=== PATIENT | female | born 1970 | race Caucasian/White ===

== ENCOUNTER → 2020-02-19 | Outpatient (CLI) | payer OTHER | LOC: M.CT 13:43 | PROVIDERS: ATTEND Nurse Practitioner | DX: Z13.6 Encounter for screening for cardiovascular disorders (principal) ==

== ENCOUNTER → 2020-03-04 | Outpatient (CLI) | payer OTHER ==
--- NOTE | 2020-03-04 17:46 | CARDNUC ---
[place] [address] CARDIAC NUCLEAR IMAGING REPORT Name: AMAURI PANIAGUA Room: [facility]#: [id number] Admission: 03/04/20 Attend Phys: Sharonda Mobley, Discharge: Date of : 70 Date of Service: 03/04/20 1746 Report #: [id number] THIS REPORT FOR: cc: Wilber Washburn Bradley L. DO Biggs, F. Douglas MD [facility] ~ APPROVED REPORT Study performed: 03/04/2020 07:45:00 Indication: Palpitations, PVC's, Strong family HX CAD, Elevated Coronary Calcium Score. Patient Location: Out-Patient Stress Tech: Funmi Rascon Stress Nurse: Alicia Heard RN Ht: 5 ft 6 in Wt: 197 lbs BSA: 1.99 m2 BMI: 31.79 Medical History Medical History: Palpitations, PVC's, PE, Elevated Coronary Artery Calcium Score, 7 day child monitor, Multiple Sclerosis, Hypothyroidism, Pre-DM, HLD, Current smoker, Family HX CAD. Medications: No Cardiac meds. Allergies: Statins Cardiac Risk Factors: Current Smoker, Pre-DM, FHX of CAD, Hyperlipidemia, Elevated Coronary Artery Calcium score, PVC's. Previous Cardiac Procedures: None Pretest Chest Pain Characteristics: No chest pain Exercise History: Physically active Physical Disabilities: Multiple Sclerosis. Meds Held (24 hrs): None Resting Data Rest SPECT myocardial perfusion imaging was performed in supine position 30 minutes following the intravenous injection of 11.3 mCi of Tc-99m Sestamibi. Time of rest injection: 08:10 The images were gated to evaluate regional wall motion and calculate left ventricular ejection fraction. Administration Route: IV Administration Site: [place] [address] CARDIAC NUCLEAR IMAGING REPORT Name: AMAURI PANIAGUA Room: [facility]#: [id number] Admission: 03/04/20 Attend Phys: Sharonda Mobley, Discharge: Date of : 70 Date of Service: 03/04/20 1746 Report #: [id number] Exercise Stress At peak stress, the patient was injected intravenously with 32.4mCi of Tc-99m Sestamibi. Time of stress injection: 09:50 Administration Route: IV Administration Site: Left Hand Heart Rate at time of stress injection: 174 bpm. Patient continued to exercise for 1 minute(s). Gated Stress SPECT was performed 30 minutes after stress injection. The images were gated to evaluate regional wall motion and calculate left ventricular ejection fraction. Prone imaging was performed. Stress Test Details Stress Test: Exercise stress testing was performed using a Raj protocol. HR Max Heart Rate (APMHR): 171 bpm Resting HR: 78 bpm Target HR (85% APMHR): 145 bpm Max HR Achieved: 174 bpm % of APMHR: 101 Recovery HR: 98 bpm HR response to stress: Normal HR response to stress BP Resting BP: 131/85 mmHg Max BP: 189/85 mmHg Recovery BP: 111/83 mmHg BP response to stress: Normal blood pressure response to stress. ECG Resting ECG: Sinus Rhythm, normal EKG Stress ECG: Sinus Tachycardia, normal EKG ST Change: None Arrhythmia: VPC's Recovery ECG: Sinus Rhythm, normal EKG Recovery ST Change: None Recovery Arrhythmia: VPCs Clinical Reason for Termination: Completed protocol, Maximal effort, Patient Request. Stress Symptoms: Fatigue, Dyspnea, weakness. Exercise duration: 7 min 25 [place] [address] CARDIAC NUCLEAR IMAGING REPORT Name: AMAURI PANIAGUA Room: [facility]#: [id number] Admission: 03/04/20 Attend Phys: Sharonda Mobley, Discharge: Date of : 70 Date of Service: 03/04/20 1746 Report #: [id number] Exercise capacity: 9.22 METs Overall Exercise Capacity for Age: Normal Nurse Comments A 49 year old female presented with Multiple Sclerosis for a Raj Protocol Nuclear Stress Test r/t HX of palpatitions, PVC's and an Elevated Coronary Artery Calcium Score. Treadmill well tolerated to maximum effort in Stage 3. Recovery unremarkable. Patient was escorted by staff to Nuclear Medicine for imaging. Patient was stable and stated she felt good at that time. Exercise Capacity - Normal. Stress ECG Conclusion ECG: Non-ischemic Clinical: Non-ischemic Normal maximal stress test. Study Quality Study: Good Artifact: Mild Breast artifact Lung Uptake: Normal Study Data At rest, the left ventricular ejection fraction was 69%.. Post stress, the left ventricular ejection was 66%.. SSS: 1 SRS: -3 SDS: -2 TID = 0.84. Perfusion The resting study demonstrated a moderate in size and mild in intensity anterior defect. The post-rest images demonstrate a small mild apical defect. The post-rest images demonstrate a small mild anterior defect. There were no reversible defects seen there is no evidence of myocardial ischemia. The fixed defect seen are likely due to breast attenuation artifact Images were reviewed using [employer]. Wall Motion Normal left ventricular wall motion. Nuclear Conclusion ECG Findings: negative for ischemia Clinical Findings: negative for ischemia Nuclear Findings: [place] [address] CARDIAC NUCLEAR IMAGING REPORT Name: AMAURI PANIAGUA Room: [facility]#: [id number] Admission: 03/04/20 Attend Phys: Sharonda Mobley, Discharge: Date of : 70 Date of Service: 03/04/20 1746 Report #: [id number] Exercise Capacity: normal Left Ventricular Function: normal Risk Study: low Normal study. No scintigraphic evidence for myocardial ischemia or scar. <Conclusion> ECG: Non-ischemic Clinical: Non-ischemic Normal maximal stress test. <ELECTRONICALLY SIGNED> By: Chel George MD, [facility] 03/04/201745 45 45 Chel George MD, FAC /INF
== END ==
LOC: M.NUC 02-20 12:56
PROVIDERS: ATTEND Nurse Practitioner
DX: R00.0 Tachycardia, unspecified (principal); R93.1 Abnormal findings on diagnostic imaging of heart and coronary circulation